=== PATIENT | female | born 1955 | race Caucasian/White ===

== ENCOUNTER 2023-02-03 15:52 | Emergency (ER) | payer OTHER ==
[2023-02-03 16:00] VITALS: RESP 16; TEMP 98.7; BMI 25.7
[2023-02-03] MEDS ORDERED: KETOROLAC TROMETHAMINE 30 MG/1 ML VIAL IM ONE (16:07)
[2023-02-03] MEDS ORDERED: LIDOCAINE 5% TOPICAL PATCH TP ONE (16:07)
[2023-02-03] MEDS ORDERED: KETOROLAC TROMETHAMINE 30 MG/1 ML VIAL ONE (16:10)
[2023-02-03] MEDS ORDERED: LIDOCAINE 5% TOPICAL PATCH ONE (16:10)
[2023-02-03] MEDS ORDERED: ACETAMINOPHEN 325 MG TABLET (FP) ONE (16:13)
[2023-02-03] MEDS ORDERED: ACETAMINOPHEN 325 MG TABLET (FP) PO ONE (16:14)
[2023-02-03 18:14] VITALS: BP 152/81; PULSE 81
== END 2023-02-03 18:10 | disposition home or self-care (01) ==
LOC: FER 15:52
DX: S83.92XA Sprain of unspecified site of left knee, initial encounter (principal); S83.91XA Sprain of unspecified site of right knee, initial encounter; S60.222A Contusion of left hand, initial encounter; R07.89 Other chest pain; M79.642 Pain in left hand; R22.32 Localized swelling, mass and lump, left upper limb; W10.1XXA Fall (on)(from) sidewalk curb, initial encounter; Y93.01 Activity, walking, marching and hiking; Y92.89 Other specified places as the place of occurrence of the external cause
CPT/HCPCS: 71101-TC-LT-FY; 73110-TC-LT-FY; 73130-TC-LT-FY; 73562-TC-LT-FY; 73562-TC-RT-FY; 99284-25

== ENCOUNTER 2023-12-30 11:35 | Day surgery (SDC) | payer OTHER ==
[2023-12-28 10:06] VITALS: BMI 25.4
[2023-12-30 11:55] VITALS: RESP 19
[2023-12-30] MEDS: TROPICAMIDE 1% OPHTH SOLN 15 ML BOTTLE ONE (12:00)
[2023-12-30] MEDS: CYCLOPENTOLATE 2% OPHTH SOLN 2 ML BOTTLE ONE (12:00)
[2023-12-30] MEDS: PHENYLEPHRINE 2.5% OPTHALMIC DROP 2ML BOTTLE ONE (12:00)
[2023-12-30] MEDS: CIPROFLOXACIN 0.3% EYE DROPS 5 ML BOTTLE ONE (12:00)
[2023-12-30] MEDS ORDERED: EPINEPHrine/PF 1 MG/1 ML (1:1,000) AMPULE ONE (12:27)
[2023-12-30] MEDS ORDERED: CARBACHOL 0.01% INTRA-OCULAR 1.5 ML VIAL ONE (12:27)
[2023-12-30] MEDS ORDERED: BSS (NA/CA/MG/K) BALANCED SALT SOLUTION OPHTH SOLN 15 ML BOTTLE ONE (12:27)
[2023-12-30] MEDS ORDERED: TETRACAINE 0.5% OPHTH SOLN 2 ML BOTTLE ONE (12:27)
[2023-12-30] MEDS ORDERED: LIDOCAINE 1% P/F 10 MG/ML VIAL ONE (12:27)
[2023-12-30] MEDS ORDERED: NEO/POLYMYX B SULF/DEXAMETH OPHTHALMIC 5ML BOTTLE ONE (12:27)
[2023-12-30] MEDS ORDERED: MIDAZOLAM HCL 2 MG/2 ML SINGLE DOSE VIAL ONE ×2 (13:37→13:42)
[2023-12-30 14:39] VITALS: PULSE 79
[2023-12-30 14:43] VITALS: BP 130/74; TEMP 98
== END 2023-12-30 14:45 | disposition home or self-care (01) ==
LOC: FASU 11:35
PROVIDERS: ATTEND Ophthalmology
PROC: 08RJ3JZ Replacement of Right Lens with Synthetic Substitute, Percutaneous Approach (ICD-10-PCS; principal; 2023-12-30 13:00)
DX: H26.8 Other specified cataract (principal)
CPT/HCPCS: 66984; V2632

== ENCOUNTER 2024-01-20 09:00 | Day surgery (SDC) | payer OTHER ==
[2024-01-15 13:38] VITALS: BMI 25.4
[2024-01-20] MEDS ORDERED: EPINEPHrine/PF 1 MG/1 ML (1:1,000) AMPULE ONE (09:09)
[2024-01-20] MEDS ORDERED: TETRACAINE 0.5% OPHTH SOLN 2 ML BOTTLE ONE (09:09)
[2024-01-20] MEDS ORDERED: LIDOCAINE 1% P/F 10 MG/ML VIAL ONE (09:09)
[2024-01-20] MEDS ORDERED: BSS (NA/CA/MG/K) BALANCED SALT SOLUTION OPHTH SOLN 15 ML BOTTLE ONE (09:09)
[2024-01-20] MEDS ORDERED: CARBACHOL 0.01% INTRA-OCULAR 1.5 ML VIAL ONE (09:10)
[2024-01-20] MEDS ORDERED: NEO/POLYMYX B SULF/DEXAMETH OPHTHALMIC 5ML BOTTLE ONE (09:10)
[2024-01-20] MEDS: CYCLOPENTOLATE 2% OPHTH SOLN 2 ML BOTTLE ONE (09:35)
[2024-01-20] MEDS: PHENYLEPHRINE 2.5% OPTHALMIC DROP 2ML BOTTLE ONE (09:35)
[2024-01-20] MEDS: CIPROFLOXACIN 0.3% EYE DROPS 5 ML BOTTLE ONE (09:35)
[2024-01-20] MEDS: TROPICAMIDE 1% OPHTH SOLN 15 ML BOTTLE ONE (09:35)
[2024-01-20] MEDS ORDERED: MIDAZOLAM HCL 2 MG/2 ML SINGLE DOSE VIAL ONE ×2 (10:30→10:41)
[2024-01-20 11:29] VITALS: TEMP 97.8
[2024-01-20 11:31] VITALS: BP 128/70; PULSE 76; RESP 19
== END 2024-01-20 11:35 | disposition home or self-care (01) ==
LOC: FASU 09:00
PROVIDERS: ATTEND Ophthalmology
PROC: 08RK3JZ Replacement of Left Lens with Synthetic Substitute, Percutaneous Approach (ICD-10-PCS; principal; 2024-01-20 10:39)
DX: H26.8 Other specified cataract (principal)
CPT/HCPCS: 66982; V2632

== ENCOUNTER 2024-11-16 09:20 | Day surgery (SDC) | payer OTHER ==
[2024-11-14 17:16] VITALS: BMI 25.1
[2024-11-16 11:04] VITALS: RESP 16; TEMP 97.3
[2024-11-16 11:28] VITALS: BP 110/61; PULSE 82
== END 2024-11-16 11:41 | disposition home or self-care (01) ==
LOC: FASU-ENDO 09:20
PROVIDERS: ATTEND Internal Medicine Gastroenterology
PROC: 0DBP8ZX Excision of Rectum, Via Natural or Artificial Opening Endoscopic, Diagnostic (ICD-10-PCS; principal; 2024-11-16 10:40)
DX: Z12.11 Encounter for screening for malignant neoplasm of colon (principal); D12.8 Benign neoplasm of rectum; K64.1 Second degree hemorrhoids
CPT/HCPCS: 88305-TC